=== PATIENT | female | born 1985 | race Hispanic/Latino ===

== ENCOUNTER 2020-07-30 03:56 | Emergency (ER) | payer OTHER ==
[2020-07-30 04:23] LABS: BASOPHILS % (AUTO) 0.2 % (0.0-5.0); EOSINOPHILS % (AUTO) 0.3 % (0.0-8.0); HEMATOCRIT 38.1 % (36-48); LYMPHOCYTES % (AUTO) 4.2 % (21.0-51.0); MEAN CORPUSCULAR HEMOGLOBIN 30.4 pg (27.0-33.0); MEAN CORPUSCULAR HGB CONC 33.9 g/dL (32.0-36.0); MEAN CORPUSCULAR VOLUME 89.9 fL (79-99); MONOCYTES % (AUTO) 3.2 % (3.0-13.0); NEUTROPHILS % (AUTO) 91.6 % (40.0-77.0); PLATELET COUNT (AUTO) 256 K/uL (130-400); RED BLOOD CELL COUNT(AUTO) 4.24 MIL/uL (4.00-5.50); RED CELL DISTRIBUTION WIDTH 12.3 % (11.0-15.5)
[2020-07-30 04:29] LABS: CREATININE 0.7 mg/dL (0.5-1.5); POTASSIUM 3.3 mmol/L (3.5-5.1)
[2020-07-30 04:31] LABS: INR 0.97 (0.85-1.15); PROTHROMBIN TIME 10.6 SEC (9.6-11.6)
[2020-07-30 04:32] LABS: PARTIAL THROMBOPLASTIN TIME 21.8 SEC (26.3-35.5)
[2020-07-30 04:33] LABS: ALBUMIN 3.9 g/dL (3.5-5.0); BILIRUBIN,TOTAL 0.7 mg/dL (0.2-1.0); TOTAL PROTEIN, SERUM 7.3 g/dL (6.0-8.3)
[2020-07-30 04:35] LABS: B-TYPE NATRIURETIC PEPTIDE 11 pg/mL (0-100)
[2020-07-30] MEDS ORDERED: ONDANSETRON HCL 4 MG/2 ML VIAL ONE (04:41)
[2020-07-30] MEDS ORDERED: SODIUM CHLORIDE 0.9% 1000ML 1,000 ML IV ONE (04:43)
[2020-07-30 06:05] LABS: APPEARANCE,URINE Clear (CLEAR); BILIRUBIN,URINE Negative (NEGATIVE); COLOR,URINE Yellow (YELLOW); GLUCOSE, URINE (UA) Negative (NEGATIVE); KETONES,URINE Trace mg/dL (NEGATIVE); LEUKOCYTE ESTERASE ,URINE Trace (NEGATIVE); NITRATE,URINE Negative (NEGATIVE); OCCULT BLOOD,URINE Moderate (NEGATIVE); PH,URINE 7.5 (5.0-8.0); PROTEIN,URINE Negative (NEGATIVE); UROBILINOGEN,URINE 0.2 mg/dL (0.2-1.0)
[2020-07-30 06:56] LABS: BACTERIA,URINE Few /HPF (None Seen); WBC,URINE 0-1 /HPF (0-1)
== END 2020-07-30 07:58 | disposition home or self-care (01) ==
LOC: EDH 03:56
DX: J10.1 Influenza due to other identified influenza virus with other respiratory manifestations (principal); Z20.822 Contact with and (suspected) exposure to COVID-19
CPT/HCPCS: 36415; 71045; 76856; 80053; 81001; 82550; 83605; 83690; 83880; 84484; 85025; 85610; 85730; 87040 ×2; 87426; 87804 ×2; 93005; 96361 ×2; 96374; 99285; J2405; J7030; U0003

== ENCOUNTER 2022-07-03 19:42 | Emergency (ER) | payer OTHER ==
[~2022-07-03] VITALS: Ht 157.5 cm; Wt 72.6 kg
[2022-07-03 19:44] VITALS: BP 139/88
[2022-07-03] MEDS ORDERED: ACETAMINOPHEN 500 MG TABLET ONE (19:45)
[2022-07-03] MEDS ORDERED: SOLU-MEDROL 125MG VIAL ONE (19:45)
[2022-07-03] MEDS ORDERED: FAMOTIDINE 20MG VIAL IV ONE (19:45)
[2022-07-03] MEDS ORDERED: DiphenhydrAMINE HCL 50 MG/ML VIAL IV ONE (20:00)
[2022-07-03] MEDS ORDERED: FAMO-136 PO (20:53)
[2022-07-03] MEDS ORDERED: METH4TAB3 PO (20:53)
== END 2022-07-03 21:00 | disposition home or self-care (01) ==
LOC: EDH 19:42
DX: T63.441A Toxic effect of venom of bees, accidental (unintentional), initial encounter (principal); R07.9 Chest pain, unspecified; H57.12 Ocular pain, left eye; Y93.89 Activity, other specified; Y92.89 Other specified places as the place of occurrence of the external cause; Y99.8 Other external cause status
CPT/HCPCS: 99284; 96374; 96375 ×2; J1200; J3490; J2930